=== PATIENT | male | born 1970 | race Caucasian/White ===

== ENCOUNTER → 2017-11-09 | Outpatient (CLI) | payer MEDICARE, OTHER ==
[~2017-11-09] MED LIST: ALBUTEROL17 G1 IH; TYLENOL325 M1 PO
== END | disposition home or self-care (01) ==
LOC: CDC 14:07
DX: Z01.810 Encounter for preprocedural cardiovascular examination (principal); K43.2 Incisional hernia without obstruction or gangrene; I49.8 Other specified cardiac arrhythmias
CPT/HCPCS: 93000

== ENCOUNTER 2017-11-22 05:25 | Day surgery (SDC) | payer OTHER ==
[~2017-11-22] VITALS: Ht 167.6 cm; Wt 77.1 kg
[~2017-11-22 05:25] MED LIST changes: +LEVITRA10 MG PO; +NORVASC10 MG PO; +PROVENTIL,2.5 MG/3 M IH; +TYLENOL EXTRA500 MG PO; +VENTOLIN HFA18 GM IH
[2017-11-22 06:20] VITALS: BP 138/98
[2017-11-22] MEDS ORDERED: NORCO 5/3251 TABLET PO (09:21)
[2017-11-22 11:29] VITALS: BP 129/76
[2017-11-22 17:13] VITALS: BP 129/82
[2017-11-22 19:51] VITALS: BP 124/81
[2017-11-23 00:10] VITALS: BP 116/71
[2017-11-23 04:07] VITALS: BP 122/71
[2017-11-23 07:16] VITALS: BP 122/62
[2017-11-24] MEDS ORDERED: MULTI VITAMIN1 EACH PO (10:41)
== END 2017-11-23 11:10 | disposition home or self-care (01) ==
LOC: SDC 05:25 → 2SOUTH 09:21 → ENRESERV 09:22 → 2EAST 11:10 → SDC 15:39 → 2EAST 11-23 11:10
PROC: 0WUF4JZ Supplement Abdominal Wall with Synthetic Substitute, Percutaneous Endoscopic Approach (ICD-10-PCS; principal; 2017-11-22)
DX: K43.2 Incisional hernia without obstruction or gangrene (principal); I10 Essential (primary) hypertension; Z87.891 Personal history of nicotine dependence
CPT/HCPCS: 94640; 94640 76; 94799; 99202; C1781; G0378; J0330; J0690; J1100; J1170; J2001; J2405; J2710; J2795; J3010; J3475; J7120; S0020

== ENCOUNTER 2017-11-24 06:34 | Inpatient (IN) | payer OTHER ==
[~2017-11-24] VITALS: Ht 167.6 cm; Wt 79.6 kg
[~2017-11-24 06:34] MED LIST changes: +NORCO 5/3251 TABLET PO
[2017-11-24 07:46] LABS: HEMATOCRIT 39.3 % (38.0-50.0); MCH 32.9 PG (29.0-34.0); MCHC 34.9 G/DL (30.0-36.0); MCV 94.2 FL (86-99); PLATELET COUNT 183 K/uL (156-360); RBC DIS.WIDTH-CV 12.3 % (11.8-14.6); RBC DIS.WIDTH-SD 41.9 % (39-53); RED BLOOD COUNT 4.17 M/uL (4.00-5.50); WHITE BLOOD COUNT 9.1 K/uL (4.1-10.2)
[2017-11-24 07:47] LABS: HEMOGLOBIN 13.7 G/DL (12.5-16.6)
[2017-11-24 07:52] LABS: CHLORIDE 105 mEq/L (99-109); POTASSIUM 3.7 mEq/L (3.7-5.4); SODIUM 141 mEq/L (136-147)
[2017-11-24 07:54] LABS: GLUCOSE 110 mg/dL (70-99)
[2017-11-24 07:58] LABS: CREATININE 0.9 mg/dL (0.6-1.3); GFR ESTIMATE (CALCULATED) > 59 mL/min/ (58.99-99999); UREA NITROGEN (BUN) 13 mg/dL (9-23)
[2017-11-24 08:24] LABS: APPEARANCE CLEAR ((CLEAR)); BILIRUBIN NEGATIVE; BLOOD NEGATIVE; COLOR YELLOW ((YELLOW)); GLUCOSE (STRIP) NEGATIVE; KETONES NEGATIVE; LEUKOCYTES NEGATIVE; NITRITE NEGATIVE; PROTEIN (STRIP) NEGATIVE; SPECIFIC GRAVITY 1.015 (1.000-1.030); UCUL ADDED? NO; UROBILINOGEN 0.2 MG/DL (0.2-1.0)
[2017-11-24] MEDS ORDERED: MULTI VITAMIN1 EACH PO (10:41)
[2017-11-24 14:43] VITALS: BP 125/71
[2017-11-24 19:26] VITALS: BP 138/93
[2017-11-24 23:37] VITALS: BP 90/56
[2017-11-24 23:40] VITALS: BP 90/56
[2017-11-25] VITALS (11 sets, daily range): BP systolic 99–123; BP diastolic 55–79
[2017-11-25 04:35] LABS: HEMATOCRIT 35.7 % (38.0-50.0); HEMOGLOBIN 12.3 G/DL (12.5-16.6); MCH 33.2 PG (29.0-34.0); MCHC 34.5 G/DL (30.0-36.0); MCV 96.5 FL (86-99); PLATELET COUNT 186 K/uL (156-360); RBC DIS.WIDTH-CV 12.8 % (11.8-14.6); RBC DIS.WIDTH-SD 45.1 % (39-53); WHITE BLOOD COUNT 7.5 K/uL (4.1-10.2)
[2017-11-26] VITALS (14 sets, daily range): BP systolic 0–145; BP diastolic 0–98
[2017-11-26 05:54] LABS: HEMATOCRIT 33.7 % (38.0-50.0); HEMOGLOBIN 11.3 G/DL (12.5-16.6); MCH 32.2 PG (29.0-34.0); MCHC 33.5 G/DL (30.0-36.0); PLATELET COUNT 169 K/uL (156-360); RBC DIS.WIDTH-CV 12.5 % (11.8-14.6); RBC DIS.WIDTH-SD 43.7 % (39-53); RED BLOOD COUNT 3.51 M/uL (4.00-5.50); WHITE BLOOD COUNT 6.8 K/uL (4.1-10.2)
[2017-11-26 06:18] LABS: CHLORIDE 104 MEQ/L (99-109); CREATININE 0.8 MG/DL (0.6-1.3); GFR ESTIMATE (CALCULATED) > 59 mL/min/ (58.99-99999); GLUCOSE 102 mg/dL (70-99); MAGNESIUM 1.7 mg/dl (1.3-2.7); PHOSPHORUS 2.1 mg/dL (2.5-4.9); POTASSIUM 3.7 MEQ/L (3.7-5.4); SODIUM 141 MEQ/L (136-147); UREA NITROGEN (BUN) 7 mg/dL (9-23)
[2017-11-27] VITALS (12 sets, daily range): BP systolic 114–144; BP diastolic 76–104
[2017-11-27 05:20] LABS: HEMATOCRIT 32.8 % (38.0-50.0); HEMOGLOBIN 11.1 G/DL (12.5-16.6); MCH 31.8 PG (29.0-34.0); MCHC 33.8 G/DL (30.0-36.0); PLATELET COUNT 206 K/uL (156-360); RBC DIS.WIDTH-CV 12.3 % (11.8-14.6); RBC DIS.WIDTH-SD 42.5 % (39-53); RED BLOOD COUNT 3.49 M/uL (4.00-5.50); WHITE BLOOD COUNT 7.4 K/uL (4.1-10.2)
[2017-11-27 05:50] LABS: ABS NEUTROPHIL COUNT 6.4; BAND NEUTROPHILS 2.6 % (0-8.0); EOSINOPHIL ABS CT 0.1; EOSINOPHILS 1.7 % (0-5.0); LYMPHOCYTES 5.2 % (15.0-45.0); SEG.NEUTROPHILS 83.5 % (46.0-76.0); SMUDGE CELLS 3.5
[2017-11-28] VITALS (10 sets, daily range): BP systolic 0–151; BP diastolic 0–101
[2017-11-28 06:15] LABS: HEMATOCRIT 36.7 % (38.0-50.0); HEMOGLOBIN 12.6 G/DL (12.5-16.6); MCH 32.2 PG (29.0-34.0); MCHC 34.3 G/DL (30.0-36.0); MCV 93.9 FL (86-99); PLATELET COUNT 253 K/uL (156-360); RBC DIS.WIDTH-CV 12.2 % (11.8-14.6); RBC DIS.WIDTH-SD 42.1 % (39-53); RED BLOOD COUNT 3.91 M/uL (4.00-5.50); WHITE BLOOD COUNT 8.1 K/uL (4.1-10.2)
[2017-11-29] VITALS (12 sets, daily range): BP systolic 112–151; BP diastolic 75–97
[2017-11-30 03:53] VITALS: BP 110/71
[2017-11-30 06:31] LABS: HEMATOCRIT 33.9 % (38.0-50.0); HEMOGLOBIN 11.6 G/DL (12.5-16.6); MCH 32.3 PG (29.0-34.0); MCHC 34.2 G/DL (30.0-36.0); MCV 94.4 FL (86-99); RBC DIS.WIDTH-CV 12.4 % (11.8-14.6); RED BLOOD COUNT 3.59 M/uL (4.00-5.50)
[2017-11-30 06:34] LABS: PLATELET COUNT 349 K/uL (156-360)
[2017-11-30 07:42] VITALS: BP 117/73
[2017-11-30 12:50] LABS: CREATININE 0.8 MG/DL (0.6-1.3); GFR ESTIMATE (CALCULATED) > 59 mL/min/ (58.99-99999); VANCOMYCIN, TROUGH 17.9 MCG/ML (10-20)
[2017-11-30 15:24] VITALS: BP 127/84
[2017-12-01 00:14] VITALS: BP 114/64
[2017-12-01 03:57] VITALS: BP 97/54
[2017-12-01 08:08] VITALS: BP 120/82
[2017-12-01 09:06] LABS: HEMATOCRIT 38.5 % (38.0-50.0); HEMOGLOBIN 12.8 G/DL (12.5-16.6); MCHC 33.2 G/DL (30.0-36.0); MCV 93.2 FL (86-99); PLATELET COUNT 371 K/uL (156-360); RBC DIS.WIDTH-CV 12.3 % (11.8-14.6); RBC DIS.WIDTH-SD 42.2 % (39-53); RED BLOOD COUNT 4.13 M/uL (4.00-5.50); WHITE BLOOD COUNT 8.4 K/uL (4.1-10.2)
[2017-12-01 16:21] VITALS: BP 143/90
[2017-12-02 00:08] VITALS: BP 131/84
[2017-12-02 07:07] LABS: HEMATOCRIT 35.3 % (38.0-50.0); HEMOGLOBIN 11.6 G/DL (12.5-16.6); MCH 31.3 PG (29.0-34.0); MCHC 32.9 G/DL (30.0-36.0); MCV 95.1 FL (86-99); PLATELET COUNT 347 K/uL (156-360); RBC DIS.WIDTH-CV 12.4 % (11.8-14.6); RED BLOOD COUNT 3.71 M/uL (4.00-5.50)
[2017-12-02 09:27] VITALS: BP 118/79
[2017-12-02 16:24] VITALS: BP 129/74
[2017-12-02 23:53] VITALS: BP 115/69
[2017-12-03 06:15] LABS: HEMATOCRIT 38.3 % (38.0-50.0); HEMOGLOBIN 12.9 G/DL (12.5-16.6); MCH 31.2 PG (29.0-34.0); MCHC 33.7 G/DL (30.0-36.0); MCV 92.5 FL (86-99); PLATELET COUNT 351 K/uL (156-360); RBC DIS.WIDTH-CV 12.1 % (11.8-14.6); RBC DIS.WIDTH-SD 41.1 % (39-53); RED BLOOD COUNT 4.14 M/uL (4.00-5.50); WHITE BLOOD COUNT 9.7 K/uL (4.1-10.2)
[2017-12-03 08:29] VITALS: BP 143/93
[2017-12-03 23:46] VITALS: BP 117/72
[2017-12-04 05:49] LABS: HEMATOCRIT 35.4 % (38.0-50.0); HEMOGLOBIN 11.8 G/DL (12.5-16.6); MCH 31.2 PG (29.0-34.0); MCHC 33.3 G/DL (30.0-36.0); MCV 93.7 FL (86-99); PLATELET COUNT 373 K/uL (156-360); RBC DIS.WIDTH-CV 12.3 % (11.8-14.6); RBC DIS.WIDTH-SD 42.4 % (39-53); RED BLOOD COUNT 3.78 M/uL (4.00-5.50); WHITE BLOOD COUNT 8.1 K/uL (4.1-10.2)
[2017-12-04 08:14] VITALS: BP 108/72
[2017-12-04 16:09] VITALS: BP 129/73
[2017-12-04 23:42] VITALS: BP 113/73
[2017-12-05 08:27] LABS: HEMATOCRIT 35.9 % (38.0-50.0); HEMOGLOBIN 12.1 G/DL (12.5-16.6); MCH 31.5 PG (29.0-34.0); MCHC 33.7 G/DL (30.0-36.0); MCV 93.5 FL (86-99); PLATELET COUNT 376 K/uL (156-360); RBC DIS.WIDTH-CV 12.4 % (11.8-14.6); RBC DIS.WIDTH-SD 42.5 % (39-53); RED BLOOD COUNT 3.84 M/uL (4.00-5.50); WHITE BLOOD COUNT 10.3 K/uL (4.1-10.2)
[2017-12-05 08:33] VITALS: BP 125/74
[2017-12-05] MEDS ORDERED: MOTRIN600 MG PO (10:18)
[2017-12-05] MEDS ORDERED: OXYCODONE HCL5 MG PO (10:18)
[2017-12-05] MEDS ORDERED: NARCAN4 MG NS (10:18)
[2017-12-05] MEDS ORDERED: COLCRYS0.6 MG PO (10:18)
[2017-12-05] MEDS ORDERED: KEFLEX500 MG PO (10:22)
[2017-12-05] MEDS ORDERED: FLAGYL500 MG PO (10:22)
[2017-12-05 13:27] VITALS: BP 125/74
== END 2017-12-05 14:00 | disposition home or self-care (01) | DRG 329 ==
LOC: EME 06:34 → 4WEST 10:10 → EDOF 10:10 → ENRESERV 10:11 → EDOF 11:05 → ENRESERV 11:54 → 3EAST 14:43 → ENRESERV 22:21 → 3EAST 22:22 → ENRESERV 22:23 → 4WEST 23:38 → ENRESERV 11-29 07:34 → 3EAST 11-29 10:25
PROVIDERS: Emergency Medicine; Physician Assistant; Surgery
DX: K91.81 Other intraoperative complications of digestive system (principal); K63.1 Perforation of intestine (nontraumatic); T28.2XXA Burn of other parts of alimentary tract, initial encounter; Y65.8 Other specified misadventures during surgical and medical care; T81.4XXA Infection following a procedure, initial encounter; L02.211 Cutaneous abscess of abdominal wall; L03.311 Cellulitis of abdominal wall; I10 Essential (primary) hypertension; I87.8 Other specified disorders of veins; M10.9 Gout, unspecified; M79.672 Pain in left foot; R00.0 Tachycardia, unspecified; R05 Cough; Z82.49 Family history of ischemic heart disease and other diseases of the circulatory system; Z86.14 Personal history of Methicillin resistant Staphylococcus aureus infection; Z87.891 Personal history of nicotine dependence
CPT/HCPCS: 71045; 74177; 80048; 80202; 81003; 82565; 83605; 83735; 84100; 85025; 85027; 86850; 86900; 86901; 87040; 87502; 87641; 88307; 93005; 94010; 94640; 94640 76; 94760; 94799; 99202; 99281; 99285; C1751; C1781; G0378; J0131; J0330; J0690; J0692; J1100; J1170; J1200; J1335; J1650; J1885; J2001; J2270; J2405; J2710; J2795; J3010; J3370; J3475; J3480; J7030; J7050; J7120; S0020; S0030